=== PATIENT | male | born 1975 | race Caucasian/White ===

== ENCOUNTER 2022-03-06 12:26 | Emergency (ER) | payer OTHER ==
[2022-03-06] MEDS ORDERED: KEFLEX250 MG PO (14:09)
[2022-03-06] MEDS ORDERED: LISINOPRIL10 MG PO (14:09)
== END 2022-03-06 15:22 | disposition home or self-care (01) ==
LOC: FER 12:26
DX: S61.102A Unspecified open wound of left thumb with damage to nail, initial encounter (principal); I10 Essential (primary) hypertension; Z23 Encounter for immunization; W22.8XXA Striking against or struck by other objects, initial encounter; Y93.89 Activity, other specified; Y92.009 Unspecified place in unspecified non-institutional (private) residence as the place of occurrence of the external cause
CPT/HCPCS: 90471; 90715